=== PATIENT | male | born 1980 | race Hispanic/Latino ===

== ENCOUNTER 2016-10-09 07:23 | Emergency (ER) | payer SELFPAY ==
[2016-10-09 07:49] VITALS: BP 116/78
[2016-10-09] MEDS ORDERED: FLEXERIL PO ONE (10:13)
[2016-10-09] MEDS ORDERED: TORADOL IM ONE (10:13)
--- NOTE | 2016-10-09 17:09 | Emergency Department Report ---
Entered by ELADIO MEJIA, acting as scribe for ALFONSO HODGSON PA. ED Upper Extremity Inj HPI - General Chief Complaint: Fall Stated Complaint: BACK PAIN S/P FALL Time Seen by Provider: 10/09/16 09:39 Source: patient Mode of arrival: Ambulatory Limitations: No Limitations - History of Present Illness Initial Comments: 36 y/o male with a PMHx of migraines, vertigo, and traumatic brain injury presents to the ED c/o gradually worsening left shoulder pain that occurred 5 days ago. Patient states he fell backwards while walking into his living room at home 5 days ago. Reports he attempted to catch himself with his left hand and subsequently heard a pop in left shoulder. Rates pain a 10/10 in severity, which he describes as achy in quality. Aggravated with movement, and alleviated with immobilization, heat, rest, and medication. Associated tingling in left arm , but he denies any recent head injury/trauma, LOC, numbness, headache, dizziness, vertigo, chest pain, SOB, abdominal pain, nausea, vomiting, and diarrhea. Applied Biofreeze and OTC muscle rub with no relief. NKDA. BOUCHER Complaint: Injury to:: left, shoulder Onset/Timin -: days(s) Other Injuries: none Handedness: right Place: home Severity scale (0 -10): 10 Improves With: immobilization, rest, other (heat therapy) Context: fall Associated Symptoms: denies other symptoms, heard/felt popping sensat. denies: weakness, numbness, neck pain, suspects foreign body, nausea/vomiting Treatments Prior to Arrival: other (Biofreeze and OTC muscle rub) - Related Data Previous Rx's Medication Instructions Recorded Last Taken Type Ibuprofen [Motrin 800 MG tab] 800 mg PO TID PRN #30 tablet 08/19/14 Unknown Rx Antivert 25 mg PO BID PRN #20 09/18/14 Unknown Rx HYDROcodone/APAP 5-325 [[place] 1 each PO Q6HR PRN #15 tablet 09/18/14 Unknown Rx 5-325 mg TAB] Propranolol 40 mg PO DAILY #30 09/18/14 Unknown Rx methOCARBAMOL [Robaxin TAB] 500 mg PO BID PRN #20 tab 10/20/14 Unknown Rx Polymyxin B Sulf/Trimethoprim 1 drop OP QID 7 Days 12/14/14 Unknown Rx [Polytrim Eye Drops 83508roolo/0.1%] Acetaminophen/Codeine [Tylenol 1 tab PO Q8H PRN #15 tablet 01/10/15 Unknown Rx /Codeine # 3 tab] Cyclobenzaprine [Flexeril] 10 mg PO QHS PRN #20 tablet 10/09/16 Unknown Rx Ibuprofen [Motrin 800 MG tab] 800 mg PO Q8HR PRN #30 tablet 10/09/16 Unknown Rx Allergies Allergy/AdvReac Type Severity Reaction Status Date / Time Mr Khalida butler bath Allergy Rash Uncoded 11/18/14 07:44 ED Review of Systems Comment: All other systems reviewed and negative Constitutional: denies: chills, fever Eyes: denies: eye pain, eye discharge, vision change ENT: denies: ear pain, throat pain Respiratory: denies: cough, orthopnea, shortness of breath, SOB with exertion, SOB at rest, stridor, wheezing Cardiovascular: denies: chest pain, palpitations, dyspnea on exertion, orthopnea , edema, syncope, paroxysmal nocturnal dyspnea Endocrine: no symptoms reported Gastrointestinal: denies: abdominal pain, nausea, vomiting, diarrhea Genitourinary: denies: urgency, dysuria Musculoskeletal: arthralgia (LT shoulder pain). denies: back pain, joint swelling, myalgia Skin: denies: rash, lesions Neurological: paresthesias (tingling in LT arm). denies: headache, weakness, numbness, confusion, abnormal gait, vertigo Psychiatric: denies: anxiety, depression Hematological/Lymphatic: denies: easy bleeding, easy bruising ED Past Medical Hx - Past Medical History Previous Medical History?: Yes Hx Headaches / Migraines: Yes Additional medical history: tbi, traumatic subdural skull fracture, vertigo - Surgical History Past Surgical History?: Yes Additional Surgical History: brain surgery, skull fx repair - Family History Family history: no significant - Social History Smoking Status: Current Every Day Smoker Substance Use Type: Prescribed - Medications Home Medications: Home Medications Medication Instructions Recorded Confirmed Last Taken Type Ibuprofen [Motrin 800 MG tab] 800 mg PO TID PRN #30 tablet 08/19/14 09/18/14 Unknown Rx Antivert 25 mg PO BID PRN #20 09/18/14 Unknown Rx HYDROcodone/APAP 5-325 [[place] 1 each PO Q6HR PRN #15 tablet 09/18/14 Unknown Rx 5-325 mg TAB] Propranolol 40 mg PO DAILY #30 09/18/14 Unknown Rx methOCARBAMOL [Robaxin TAB] 500 mg PO BID PRN #20 tab 10/20/14 Unknown Rx Polymyxin B Sulf/Trimethoprim 1 drop OP QID 7 Days 12/14/14 Unknown Rx [Polytrim Eye Drops 04251orjef/0.1%] Acetaminophen/Codeine [Tylenol 1 tab PO Q8H PRN #15 tablet 01/10/15 Unknown Rx /Codeine # 3 tab] Cyclobenzaprine [Flexeril] 10 mg PO QHS PRN #20 tablet 10/09/16 Unknown Rx Ibuprofen [Motrin 800 MG tab] 800 mg PO Q8HR PRN #30 tablet 10/09/16 Unknown Rx ED Physical Exam - General Limitations: No Limitations General appearance: alert, in no apparent distress - Head Head exam: Present: atraumatic, normocephalic - Eye Eye exam: Present: normal appearance, PERRL, EOMI Pupils: Present: normal accommodation - ENT ENT exam: Present: normal exam, mucous membranes moist, normal external ear exam - Neck Neck exam: Present: normal inspection, full ROM. Absent: tenderness, meningismus, lymphadenopathy, thyromegaly - Respiratory Respiratory exam: Present: normal lung sounds bilaterally. Absent: respiratory distress, wheezes, rales, rhonchi, stridor, accessory muscle use, decreased breath sounds - Cardiovascular Cardiovascular Exam: Present: regular rate, normal rhythm, normal heart sounds. Absent: systolic murmur, diastolic murmur, rubs, gallop - GI/Abdominal GI/Abdominal exam: Present: soft, normal bowel sounds. Absent: distended - Extremities Exam Extremities exam: Present: full ROM, tenderness (LT shoulder blade joints), normal capillary refill. Absent: normal inspection, pedal edema, joint swelling , calf tenderness - Expanded Upper Extremity Exam Left General: Present: normal inspection. Absent: laceration, abrasion, nail injury (#), foreign body, amputation, avulsion Shoulder Exam: Present: full ROM, tenderness (LT shoulder blade joints). Absent : normal inspection, swelling, abrasion, laceration, ecchymosis, deformity, crepidus, dislocation, erythema, tenderness over AC joint Upper Arm exam: Present: normal inspection, full ROM. Absent: tenderness, swelling, abrasion, laceration, ecchymosis, deformity, crepidus, dislocation, erythema Elbow exam: Present: normal inspection, full ROM. Absent: tenderness, swelling , abrasion, laceration, ecchymosis, deformity, crepidus, dislocation, erythema, effusion, pain w/ pronation/supination, tenderness over radial head Forearm Wrist exam: Present: normal inspection, full ROM. Absent: tenderness, swelling, abrasion, laceration, ecchymosis, deformity, crepidus, dislocation, erythema, tenderness over anatomical snuff box, pain with axial thumb loading Hand Wrist exam: Present: normal inspection, full ROM. Absent: tenderness, swelling, abrasion, laceration, ecchymosis, deformity, crepidus, dislocation, erythema, amputation, nail avulsion, subungual hematoma Neuro motor exam: Present: wrist extension intact, thumb opposition intact, thumb IP flexion intact, thumb adduction intact, fingers 2-5 abduction intact Neurosensory exam: Present: 2-point discrimination, radial nerve intact Vascular: Present: normal capillary refill, radial pulse (2+). Absent: vascular compromise, Pallo, pulse deficit radial art - Back Exam Back exam: Present: normal inspection, full ROM. Absent: tenderness, CVA tenderness (R), CVA tenderness (L), muscle spasm, paraspinal tenderness, vertebral tenderness, rash noted - Neurological Exam Neurological exam: Present: alert, oriented X3, normal gait - Expanded Neurological Exam Expanded Motor strength exam: LUE: 5 (painful) - Psychiatric Psychiatric exam: Present: normal affect, normal mood - Skin Skin exam: Present: warm, dry, intact. Absent: rash, ecchymosis ED Course Vital Signs 10/09/16 07:46 Temperature 97.5 F L Pulse Rate 84 Respiratory 18 Rate Blood Pressure 116/78 O2 Sat by Pulse 98 Oximetry ED Medical Decision Making - Medical Decision Making 36 year-old male presents with acute left shoulder pain ED course: Patient was given a dose of Flexeril and Toradol Vital signs stable patient is in no acute or respiratory distress. Discussed findings with patient about diagnoses. Discussed treatment in ED with patient Discussed with patient to apply ice and heat to affected area Discussed with patient to not take prescribed medication while operating a vehicle, because it causes drowsiness Discussed with patient to follow up with PCP as referred, and to return to the ED if symptoms return or worsen. Patient states understanding and will follow instructions. Pt verbally states understanding and will comply to follow up. ED Disposition Clinical Impression: Shoulder arthralgia Disposition: TO HOME OR SELFCARE Is pt being admited?: No Does the pt Need Aspirin: No Condition: Stable Instructions: Arthralgia (ED), Trigger Point Pain (ED), Heat Pack Application ( ED) Prescriptions: Cyclobenzaprine [Flexeril] 10 mg PO QHS PRN #20 tablet PRN Reason: Muscle Spasm Ibuprofen [Motrin 800 MG tab] 800 mg PO Q8HR PRN #30 tablet PRN Reason: Pain Referrals: PRIMARY CAREMD [Primary Care Provider] - 3-5 Days LOMAN ALONSO MD [Staff Physician] - 3-5 Days JELANI HAND MD [Referring] - 3-5 Days [facility] [Outside] - 3-5 Days Forms: Accompanied Note, Work/School Release Form(ED) Time of Disposition: 10:51 This documentation as recorded by the ROBERTO brown JASMINE,accurately reflects the service I personally performed and the decisions made by ,ALFONSO HODGSON PA.
== END 2016-10-09 11:04 | disposition home or self-care (01) ==
LOC: ED 07:23
DX: M25.512 Pain in left shoulder (principal); G43.909 Migraine, unspecified, not intractable, without status migrainosus; F17.200 Nicotine dependence, unspecified, uncomplicated; Z88.8 Allergy status to other drugs, medicaments and biological substances; W17.89XA Other fall from one level to another, initial encounter; Y93.89 Activity, other specified; Y99.8 Other external cause status; Y92.89 Other specified places as the place of occurrence of the external cause
CPT/HCPCS: 96372; 99282; J1885